=== PATIENT | female | born 1955 | race Two or more races ===

== ENCOUNTER 2022-12-06 07:14 | Day surgery (SDC) | payer OTHER ==
[~2022-12-06] VITALS: Ht 154.9 cm; Wt 72.6 kg
== END 2022-12-06 15:35 | disposition home or self-care (01) ==
LOC: CIR.AMB 07:14
PROVIDERS: ATTEND Orthopaedic Surgery
DX: M75.121 Complete rotator cuff tear or rupture of right shoulder, not specified as traumatic (principal); M75.01 Adhesive capsulitis of right shoulder; M75.21 Bicipital tendinitis, right shoulder; M24.111 Other articular cartilage disorders, right shoulder; Z20.822 Contact with and (suspected) exposure to COVID-19